=== PATIENT | male | born 1975 | race Caucasian/White ===

== ENCOUNTER 2020-04-26 07:10 | Emergency (ER) | payer OTHER ==
[~2020-04-26] VITALS: Ht 172.7 cm; Wt 95.4 kg
[2020-04-26] MEDS ORDERED: ISOVUE-370 76% 100ML VIAL As Ordered ONE (08:10)
[2020-04-26 08:12] LABS: BASO % 0.5 % (0.0-1.0); EOS # 0.1 10^3/uL (0.0-0.5); HEMATOCRIT 46.3 % (42.0-52.0); HEMOGLOBIN 15.8 g/dl (13.5-17.5); LYMPH # 1.2 10^3/uL (1.5-5.0); LYMPH % 14.8 % (24.0-44.0); MEAN CORPUSCULAR HEMOGLOBIN 30.9 pg (27.0-33.0); MEAN CORPUSCULAR HGB CONC 34.1 g/dl (32.0-36.5); MEAN CORPUSCULAR VOLUME 90.4 fl (80.0-96.0); MONO # 0.8 10^3/uL (0.0-0.8); MONO % 9.9 % (0.0-5.0); NEUTROPHILS # 6.1 10^3/uL (1.5-8.5); NEUTROPHILS % 73.4 % (36.0-66.0); PLATELET COUNT, AUTOMATED 225 10^3/uL (150-450); RED BLOOD COUNT 5.12 10^6/uL (4.30-6.10); WHITE BLOOD COUNT 8.3 10^3/uL (4.0-10.0)
[2020-04-26 08:31] LABS: ERYTHROCYTE SEDIMENTATION RATE 5 mm/hr (0-15)
--- NOTE | 2020-04-26 08:58 | REP ---
Clinical: Jaw pain and swelling. Technique: Axial contrast enhanced images from the the mid skull through the thoracic inlet with coronal and sagittal re-formations using 75 ml Isovue 370 intravenous contrast material. Findings: Left perimandibular and submandibular soft tissue swelling with subcutaneous infiltration and mild adenopathy is appreciated. No discrete drainable collection or abscess identified. The osseous structures appear intact and normal. Glandular tissue appears relatively normal/symmetric. Oral pharyngeal through hypopharyngeal soft tissue structures are relatively symmetric and without mass or abnormality. Sinuses are clear. Impression: Left perimandibular and submandibular superficial soft tissue swelling and infiltration with adenopathy. No evidence for drainable collection or abscess. No obvious underlying osseous abnormality. Electronically Signed by Cirilo Mcneil MD 04/26/2020 08:50 A
[2020-04-26] MEDS ORDERED: AMPICILLIN SOD/SULBACTAM SOD 3 GM in D5W MINI-BAG PLUS 100 ML IV ONE (09:15)
[2020-04-26] MEDS ORDERED: dexameTHASONE 20MG/5ML VIAL (J1100 PER 1MG) IV ONE (09:15)
[2020-04-26] MEDS ORDERED: AUGM875T28 PO (09:30)
[2020-04-26 10:18] VITALS: BP 136/85
== END 2020-04-26 10:24 | disposition home or self-care (01) ==
LOC: M ED 07:10
DX: R22.0 Localized swelling, mass and lump, head (principal); K02.9 Dental caries, unspecified; Z98.84 Bariatric surgery status
CPT/HCPCS: 70491; 80047; 85025; 85652; 86140; 87040; 96365; 96375; 99284; J1100; Q9967

== ENCOUNTER 2022-06-20 17:57 | Emergency (ER) | payer OTHER ==
[~2022-06-20] VITALS: Ht 172.7 cm; Wt 102.3 kg
[~2022-06-20 17:57] MED LIST: AUGM875T28 PO
[2022-06-20] MEDS ORDERED: KETOROLAC 60MG 2ML VIAL IM ONE (21:50)
[2022-06-20] MEDS ORDERED: methocarbamoL 750 MG TAB PO ONE (21:50)
[2022-06-20] MEDS ORDERED: METH-1165 PO (21:58)
[2022-06-20] MEDS ORDERED: PRED20TA PO (21:58)
[2022-06-20 22:16] VITALS: BP 142/92
== END 2022-06-20 22:15 | disposition home or self-care (01) ==
LOC: M ED 22:09
DX: M54.50 Low back pain, unspecified (principal); Z79.899 Other long term (current) drug therapy
CPT/HCPCS: 96372; 99283; J1885